=== PATIENT | male | born 1990 | race Hispanic/Latino ===

== ENCOUNTER 2023-01-21 12:17 | Emergency (ER) | payer SELFPAY ==
[~2023-01-21] VITALS: Ht 162.6 cm; Wt 69.0 kg
[2023-01-21] MEDS ORDERED: PREDNISONE20 MG PO (13:16)
[2023-01-21 13:43] VITALS: BP 140/70
== END 2023-01-21 13:44 | disposition home or self-care (01) | DRG 554 ==
LOC: ED 12:17
DX: M10.071 Idiopathic gout, right ankle and foot (principal)